=== PATIENT | male | born 1990 | race Two or more races ===

== ENCOUNTER 2017-05-30 03:33 | Emergency (ER) | payer SELFPAY ==
[2017-05-30 03:41] VITALS: BMI 27.6
[2017-05-30 04:09] LABS: HEMOGLOBIN 15.8 g/dL (12.0-18.0); MEAN CELL VOLUME 83.9 fl (80.0-94.0); MEAN CORPUSCULAR HEMOGLOBIN 29.2 pg (27.0-31.0); MEAN CORPUSCULAR HGB CONC 34.8 g/dL (33.0-37.0); RBC 5.41 Mil/uL (4.40-5.90); WHITE BLOOD COUNT 9.1 K/uL (4.8-10.8)
[2017-05-30 04:26] LABS: ALB/GLOB RATIO 1.8 (1.0-2.1); ALBUMIN 4.7 g/dL (3.5-5.0); ALT/SGPT 31 U/L (21-72); AST/SGOT 22 U/L (17-59); BLOOD UREA NITROGEN 17 mg/dl (9-20); CALCIUM 9.1 mg/dL (8.4-10.2); GFR AFRICAN-AMERICAN > 60; GFR NON-AFRICAN AMERICAN > 60
--- NOTE | 2017-05-30 05:53 | ED PDOC ---
HPI: Psych/Substance Abuse Time Seen by Provider: 05/30/17 03:38 Chief Complaint (Nursing): Psychiatric Evaluation Chief Complaint (Provider): ETOH - Attempted to jump into [facility] History Per: Patient, Other (Friend ) Additional Complaint(s): 26 yo male brought in by EMS after he attempted to jump into the [facility]. Pt admits to drinking alcohol today. According to police patient told them he was thinking about killing himself a week ago with a knife. Past Medical History Reviewed: Historical Data, Nursing Documentation, Vital Signs Vital Signs: Last Vital Signs Temp 98.0 F 05/30/17 03:40 Pulse 129 H 05/30/17 03:40 Resp 19 05/30/17 03:40 BP 125/72 05/30/17 03:40 Pulse Ox 97 05/30/17 03:40 - Medical History PMH: No Chronic Diseases - Surgical History Surgical History: No Surg Hx - Family History Family History: States: No Known Family Hx - Allergies Allergies/Adverse Reactions: Allergies Allergy/AdvReac Type Severity Reaction Status Date / Time No Known Allergies Allergy Verified 05/30/17 03:40 Review of Systems ROS Statement: Except As Marked, All Systems Reviewed And Found Negative Constitutional: Negative for: Fever, Chills Gastrointestinal: Negative for: Nausea, Vomiting, Abdominal Pain Psych: Negative for: Suicidal ideation Physical Exam - Reviewed Nursing Documentation Reviewed: Yes Vital Signs Reviewed: Yes - Physical Exam Appears: Positive for: Well, Non-toxic, No Acute Distress Head Exam: Positive for: ATRAUMATIC, NORMAL INSPECTION, NORMOCEPHALIC Skin: Positive for: Normal Color, Warm, DRY Eye Exam: Positive for: Normal appearance ENT: Positive for: Normal ENT Inspection Neck: Positive for: Normal, Painless ROM Cardiovascular/Chest: Positive for: Regular Rate, Rhythm Respiratory: Positive for: CNT, Normal Breath Sounds Back: Positive for: Normal Inspection Extremity: Positive for: Normal ROM Neurologic/Psych: Positive for: Alert, Oriented - Laboratory Results Result Diagrams: 05/30/17 04:06 05/30/17 04:06 - ECG O2 Sat by Pulse Oximetry: 97 Medical Decision Making Medical Decision Making: Endorsed pending crisis evaluation at 6000 Disposition - Clinical Impression Clinical Impression: Alcohol abuse, Encounter for psychiatric assessment - Patient ED Disposition Is Patient to be Admitted: Transfer of Care - Disposition Disposition: Transfer of Care Disposition Time: 06:03 Condition: STABLE
--- NOTE | 2017-05-30 07:34 | ED PDOC ---
- Laboratory Results Result Diagrams: 05/30/17 04:06 05/30/17 04:06 - ECG O2 Sat by Pulse Oximetry: 94 (RA) Medical Decision Making Medical Decision Making: Time: 7:00 Patient endorsed to me by Dr. Kwesi Beard at this time, pending clinical sobriety and crisis evaluation. On reevaluation, patient is alert, awake, and ambulatory with steady gait. Discussed with mold release worker, patient is cleared for discharge per Dr. Juares. Clinical Impression: Substance abuse disorder Upon provider evaluation patient is medically stable, and requires no further treatment in the ED at this time. Patient will be discharged. Counseling was provided and all questions were answered regarding diagnosis and need for follow up with PMD. There is agreement to discharge plan. Return if symptoms persist or worsen. Scribe Attestation: Documented by Arlyn Farr, acting as a scribe for Hebert Howard MD Provider Scribe Attestation: All medical record entries made by the Scribe were at my direction and personally dictated by me. I have reviewed the chart and agree that the record accurately reflects my personal performance of the history, physical exam, medical decision making, and the department course for this patient. I have also personally directed, reviewed, and agree with the discharge instructions and disposition. Disposition Counseled Patient/Family Regarding: Studies Performed, Diagnosis - Clinical Impression Clinical Impression: Alcohol abuse, Encounter for psychiatric assessment - POA Present On Arrival: None - Disposition Disposition: Routine/Home Disposition Time: 09:45 Condition: STABLE Forms: Mee[employer] (Danish)
[2017-05-30 10:03] VITALS: BP 100/70; PULSE 78; RESP 20; TEMP 98
[2017-05-30 10:08] VITALS: O2SAT 94
== END 2017-05-30 10:02 | disposition home or self-care (01) ==
LOC: H.ER 03:33
DX: F10.10 Alcohol abuse, uncomplicated (principal); Z00.8 Encounter for other general examination
CPT/HCPCS: 80053; 82948; 85027; 99285; G0480